=== PATIENT | female | born 2000 | race Caucasian/White ===

== ENCOUNTER 2018-06-20 06:15 | Emergency (ER) | payer SELFPAY ==
[2018-06-20 06:49] LABS: BILIRUBIN,URINE NEGATIVE (NEGATIVE); GLUCOSE, URINE (UA) NEGATIVE (NEGATIVE); KETONES,URINE (UA) NEGATIVE (NEGATIVE); LEUKOCYTE ESTERASE, URINE NEGATIVE (NEGATIVE); NITRITE,URINE POSITIVE (NEGATIVE); OCCULT BLOOD,URINE LARGE (NEGATIVE); PH,URINE 5.5 PH (5.0-7.5); PROTEIN,URINE NEGATIVE (NEGATIVE); UROBILINOGEN,URINE 0.2 (NORMAL) E.U./dL (NORMAL)
[2018-06-20 06:50] LABS: CLARITY,URINE HAZY (CLEAR)
[2018-06-20 06:51] LABS: HCG UR QUAL NEGATIVE
[2018-06-20 06:59] LABS: BACTERIA,URINE Many /HPF (None Seen); SQUAMOUS EPITHELIAL CELL,UR MOD Squamous (<= Few)
[2018-06-20 07:16] LABS: BASOPHILS % (AUTO) 0.3 %; EOSINOPHILS # (AUTO) 0.1 10^3/uL (0.0-0.7); EOSINOPHILS % (AUTO) 1.5 %; HGB - HEMOGLOBIN 12.6 g/dL (12.0-16.0); LYMPHOCYTES # (AUTO) 1.5 10^3/uL (1.5-3.5); MEAN CORPUSCULAR HEMOGLOBIN 29.5 pg (27.0-31.0); MEAN CORPUSCULAR HGB CONC 33.7 g/dL (32.0-36.0); MEAN CORPUSCULAR VOLUME 87.6 fL (81.0-99.0); MEAN PLATELET VOLUME 8.5 fL (7.9-10.8); MONOCYTES # (AUTO) 0.5 10^3/uL (0.0-1.0); MONOCYTES % (AUTO) 6.8 %; NEUTROPHILS # (AUTO) 4.6 10^3/uL (1.5-6.6); NEUTROPHILS % (AUTO) 69.4 %; PLT - PLATELET COUNT 186 10^3/uL (130-450); RED BLOOD COUNT 4.25 10^6/uL (4.20-5.40); RED CELL DISTRIBUTION WIDTH 13.4 % (12.0-15.0); WHITE BLOOD COUNT 6.7 x10^3/uL (4.8-10.8)
[2018-06-20 07:29] LABS: ALBUMIN/GLOBULIN RATIO 1.3 (1.0-2.2); BILIRUBIN,TOTAL 0.4 mg/dL (0.2-1.0); CALCIUM 8.9 mg/dL (8.5-10.3); CREATININE 0.6 mg/dL (0.4-1.0)
[2018-06-20] MEDS ORDERED: IBUPROFEN 600 MG TABLET PO STA (08:16)
[2018-06-20] MEDS ORDERED: SULFAMETH/TRIMETH DS 800/160 MG TABLET PO STA (08:16)
--- NOTE | 2018-06-20 08:19 | ED Physician Documentation ---
PD HPI FEMALE - Stated complaint Stated Complaint: FEMALE - Chief complaint Chief Complaint: Abd Pain - History obtained from History obtained from: Patient - History of Present Illness Timing - onset: Last night (had lower abd/pelvic cramps last night and then this morning had onset of vaginal bleeding with some clots passed about 2-3 cm size. Bleeding has tapered off coming to the ER.) Timing - duration: Hours Timing - details: Abrupt onset, Still present (lessening) Associated symptoms: Pelvic pain, Vaginal bleeding. No: Fever, Vaginal discharge, Genital sore/lesion, Dysuria Contributing factors: (LMP early May, and had home test positive (4 of them) - done 5 and 3 days ago.). No: control, Exposed to STD OB-BIOLOGICAL SCIENCE TECHNICIAN History: G (1), P (0) Similar symptoms before: Has not had sx before Recently seen: Not recently seen Review of Systems Constitutional: denies: Fever, Chills Nose: denies: Rhinorrhea / runny nose, Congestion Throat: denies: Sore throat Cardiac: denies: Chest pain / pressure Respiratory: denies: Cough GI: denies: Nausea, Vomiting, Diarrhea : reports: Vaginal bleeding, Now EGA (5). denies: Dysuria, Frequency, Discharge Neurologic: denies: Generalized weakness, Near syncope PD PAST MEDICAL HISTORY - Past Medical History Past Medical History: No Cardiovascular: None Respiratory: None BIOLOGICAL SCIENCE TECHNICIAN: None - Past Surgical History Past Surgical History: No - Present Medications Home Medications: Ambulatory Orders Medication Instructions Recorded Confirmed Ibuprofen [Motrin] 600 mg PO TID #20 tab 06/20/18 Sulfamethox/Trimeth 800/160 1 each PO BID #10 tablet 06/20/18 [Bactrim Ds 800/160] - Allergies Allergies/Adverse Reactions: Allergies Allergy/AdvReac Type Severity Reaction Status Date / Time morphine Allergy Hives Verified 06/20/18 06:32 - Social History Does the pt smoke?: No Smoking Status: Never smoker Does the pt drink ETOH?: Yes Does the pt have substance abuse?: No - Immunizations Immunizations are current?: Yes - POLST Patient has POLST: No PD ED PE NORMAL - Vitals Vital signs reviewed: Yes - General General: Alert and oriented X 3, No acute distress, Well developed/nourished - Neck Neck: Supple, no meningeal sign, No adenopathy - Cardiac Cardiac: RRR, No murmur - Respiratory Respiratory: Clear bilaterally - Abdomen Abdomen: Normal bowel sounds, Soft, Non distended, No organomegaly, Other (mild suprapubic to LLQ area without guardin nor percussion tender.) - Female Female : Deferred - Rectal Rectal: Deferred - Back Back: No CVA TTP Results - Vitals Vitals: Vital Signs - 24 hr 06/20/18 06/20/18 06:20 08:29 Temperature 36.4 C L 36.6 C Heart Rate 78 74 Respiratory 18 18 Rate Blood Pressure 120/73 118/70 O2 Saturation 98 98 Oxygen O2 Source Room air - Labs Labs: Laboratory Tests 06/20/18 06/20/18 06/20/18 06:35 07:05 07:05 WBC 6.7 RBC 4.25 Hgb 12.6 Hct 37.3 MCV 87.6 MCH 29.5 MCHC 33.7 RDW 13.4 Plt Count 186 MPV 8.5 Neut # (Auto) 4.6 Lymph # (Auto) 1.5 Adams # (Auto) 0.5 Eos # (Auto) 0.1 Baso # (Auto) 0.0 Absolute Nucleated RBC 0.00 Nucleated RBC % 0.0 Sodium 138 Potassium 4.0 Chloride 103 Carbon Dioxide 24 Anion Gap 11.0 BUN 12 Creatinine 0.6 Estimated GFR (MDRD) 127 Glucose 94 Calcium 8.9 Total Bilirubin 0.4 AST 27 ALT 29 Alkaline Phosphatase 60 Total Protein 7.0 Albumin 4.0 Globulin 3.0 Albumin/Globulin Ratio 1.3 Lipase 26 HCG, Quant Urine Color YELLOW Urine Clarity HAZY Urine pH 5.5 Ur Specific [place] 1.025 Urine Protein NEGATIVE Urine Glucose (UA) NEGATIVE Urine Ketones NEGATIVE Urine Occult Blood LARGE H Urine Nitrite POSITIVE H Urine Bilirubin NEGATIVE Urine Urobilinogen 0.2 (NORMAL) Ur Leukocyte Esterase NEGATIVE Urine RBC 6-10 H Urine WBC 0-3 Ur Squamous Epith Cells MOD Squamous H Urine Bacteria Many H Ur Microscopic Review INDICATED Urine Culture Comments NOT INDICATED Urine HCG, Qual NEGATIVE Blood Type 06/20/18 06/20/18 07:05 07:05 WBC RBC Hgb Hct MCV MCH MCHC RDW Plt Count MPV Neut # (Auto) Lymph # (Auto) Adams # (Auto) Eos # (Auto) Baso # (Auto) Absolute Nucleated RBC Nucleated RBC % Sodium Potassium Chloride Carbon Dioxide Anion Gap BUN Creatinine Estimated GFR (MDRD) Glucose Calcium Total Bilirubin AST ALT Alkaline Phosphatase Total Protein Albumin Globulin Albumin/Globulin Ratio Lipase HCG, Quant 9.39 Urine Color Urine Clarity Urine pH Ur Specific [place]way Urine Protein Urine Glucose (UA) Urine Ketones Urine Occult Blood Urine Nitrite Urine Bilirubin Urine Urobilinogen Ur Leukocyte Esterase Urine RBC Urine WBC Ur Squamous Epith Cells Urine Bacteria Ur Microscopic Review Urine Culture Comments Urine HCG, Qual Blood Type A POSITIVE - Rads (name of study) pelvic U/S Radiology: Prelim report reviewed (normal U/S, no IUP, normal adnexa.) PD MEDICAL DECISION MAKING - ED course Complexity details: considered differential (had home preg test positive x 4, so presume is true. Had negative quant here with vag bleeding and normal U/S. So apparent IUFD with now miscarriage. ) - Sepsis Event Vital Signs: Vital Signs - 24 hr 06/20/18 06/20/18 06:20 08:29 Temperature 36.4 C L 36.6 C Heart Rate 78 74 Respiratory 18 18 Rate Blood Pressure 120/73 118/70 O2 Saturation 98 98 Oxygen O2 Source Room air Departure - Departure Disposition: 01 Home, Self Care Clinical Impression: Complete miscarriage, Vaginal bleeding UTI (urinary tract infection) Qualifiers: Urinary tract infection type: acute cystitis Hematuria presence: without hematuria Qualified Code(s): N30.00 - Acute cystitis without hematuria Condition: Stable Record reviewed to determine appropriate education?: Yes Instructions: ED Miscarriage Completed, ED UTI Cystitis Female Prescriptions: Ibuprofen [Motrin] 600 mg PO TID #20 tab Sulfamethox/Trimeth 800/160 [Bactrim Ds 800/160] 1 each PO BID #10 tablet Comments: Your ultrasound shows an empty uterus. Your HCG blood test here today is very low and would be consistent with not being . Given your positive home tests, I am sorry to say that this would suggest that you had a very early that had miscarried and is now passing out. I would anticipate a little bit of bleeding and clotting through the day today and possibly tomorrow and tapering off. Drink lots of fluids. Tylenol or ibuprofen if needed for pains and cramps. You also do have a bladder infection and use Bactrim twice daily for 5 days for that. Return if significant pains cramps or bleeding. Discharge Date/Time: 06/20/18 08:29
[2018-06-20 08:34] VITALS: BP 118/70
--- NOTE | 2018-06-20 08:52 | Ultrasound Report ---
Reason: pos home preg test; neg here. had vag bleeding tod Procedure Date: 06/20/2018 Accession Number: [id number] / [id number] Procedure: US - Pelvic w/Transvaginal CPT Code: FULL RESULT: EXAM: PELVIC ULTRASOUND EXAM DATE: 06/20/2018 08:16 AM. CLINICAL HISTORY: Pos home preg test; neg here. had vag bleeding tod. COMPARISON: None. TECHNIQUE: Realtime transabdominal pelvic scan performed to identify the uterus and adnexa and as an overview of other pelvic structures, followed by transvaginal scan to provide greater detail of the uterus and adnexa, with static image documentation. FINDINGS: Uterus: 8 x 3.4 x 4.3 cm, volume 61 cc. Anteverted position. Normal overall size and echotexture. Masses: None. Endometrium: 4 mm. Normal. Cervix: Unremarkable. Right Ovary: 4.4 x 2 x 2.3 cm, volume 10.5 cc. Normal echotexture and blood flow. An anechoic cyst measures 2 x 1.8 x 2 cm. Left Ovary: 3 x 1.6 x 1.7 cm, volume 4.2 cc. Normal echotexture and blood flow. Free Fluid: None. Other: None. IMPRESSION: Negative pelvic ultrasound exam. Specifically, negative for an IUP. RADIA
== END 2018-06-20 08:29 | disposition home or self-care (01) ==
LOC: ED 06:15
DX: O03.9 Complete or unspecified spontaneous abortion without complication (principal); N93.9 Abnormal uterine and vaginal bleeding, unspecified
CPT/HCPCS: 36415; 76830; 76856; 80053; 81001; 81025; 83690; 84702; 85025; 86900; 86901; 99283; A9270; 81003; 87086

== ENCOUNTER 2018-10-24 16:06 | Outpatient (CLI) | payer BC ==
--- NOTE | 2018-10-24 18:21 | Ultrasound Report ---
Reason: EXAMINATION OR TEST,POSITIVE RESULT Procedure Date: 10/24/2018 Accession Number: [id number] / [id number] Procedure: US - OB First Trimester CPT Code: FULL RESULT: EXAM: FIRST TRIMESTER OBSTETRIC ULTRASOUND (Less than 11 weeks) EXAM DATE: 10/24/2018 04:48 PM. CLINICAL HISTORY: EXAMINATION OR Test, positive RESULT. LMP: 08/25/2018. COMPARISONS: None. TECHNIQUE: Transabdominal and transvaginal ultrasound examination with static image documentation. CLINICAL DATES: EGA 8 weeks 4 days with MICHAEL 06/01/2019 based on LMP. ASSESSMENT: Gestational Sac: Single intrauterine. Mean gestational sac diameter: 15.2 mm = 5 weeks 5 days. Embryo: CRL (crown-rump length) 10.6 mm = 7 weeks 1 day. Cardiac activity: 168 beats per minute. Yolk sac: 2.9 mm. Amniotic fluid: Not accurately assessed at this gestational age. Early placenta: Not visible at this gestational age. Other: No perigestational fluid collection demonstrated. MATERNAL STRUCTURES: Uterus: Anteverted. Unremarkable. Cervix: Closed. Right Ovary/Adnexa: The ovary measures 3.3 x 1.6 x 2 cm, volume 5.5 cc. Unremarkable. 1.8 cm in diameter cyst. Left Ovary/Adnexa: The ovary measures 3.9 x 1.9 x 1.6 cm, volume 6.2 cc. Unremarkable. Free Fluid: None. Other: None. IMPRESSION: 1. Single viable intrauterine at EGA 7 weeks 1 day with MICHAEL 06/11/2019 based on crown-rump length, which is discordant with clinical dates. 2. Assigned dating is MICHAEL 06/11/2019 based on current ultrasound.. RADIA
== END 2018-10-24 16:07 | disposition home or self-care (01) ==
LOC: DI 16:06
PROVIDERS: ATTEND Nurse Practitioner Obstetrics & Gynecology
DX: Z32.01 Encounter for pregnancy test, result positive (principal)
CPT/HCPCS: 76801; 76817

== ENCOUNTER 2018-11-05 14:15 | Outpatient (CLI) | payer BC ==
[2018-11-05 18:42] LABS: MUDS CUTOFF CONCENTRATIONS CUTOFF CONC BELOW:
[2018-11-05 19:40] LABS: AMPHETAMINE SCREEN,URINE NEGATIVE (NEGATIVE); BENZODIAZEPINES SCREEN, URINE NEGATIVE (NEGATIVE); COCAINE SCREEN URINE NEGATIVE (NEGATIVE); METHADONE SCREEN, URINE NEGATIVE (NEGATIVE); METHAMPHETAMINES SCREEN, URINE NEGATIVE (NEGATIVE); OPIATE SCREEN, URINE NEGATIVE (NEGATIVE); OXYCODONE SCREEN, URINE NEGATIVE (NEGATIVE); PROPOXYPHENE SCREEN, URINE NEGATIVE (NEGATIVE); TRICYCLIC ANTIDEPRESSANT,URINE NEGATIVE (NEGATIVE)
== END 2018-11-05 23:59 | disposition home or self-care (01) ==
LOC: LAB.R 14:15
PROVIDERS: ATTEND Nurse Practitioner Obstetrics & Gynecology
DX: Z34.90 Encounter for supervision of normal pregnancy, unspecified, unspecified trimester (principal)
CPT/HCPCS: 80306

== ENCOUNTER 2019-02-17 13:12 | Outpatient (CLI) | payer BC ==
--- NOTE | 2019-02-17 15:39 | Ultrasound Report ---
Reason: SUPERVISION OF Procedure Date: 02/17/2019 Accession Number: [id number] / [id number] Procedure: US - OB Detailed Eval CPT Code: FULL RESULT: EXAM: COMPLETE OBSTETRICAL ULTRASOUND EXAM DATE: 02/17/2019 01:48 PM. CLINICAL HISTORY: anatomic survey. COMPARISON: 02/17/2019 3:01 PM. TECHNIQUE: Real-time sonographic evaluation of the fetus performed by the chief of police. Multiple metals sales representative static images were saved for review. DATING: Established EGA 22 weeks 5 days with MICHAEL 06/11/2019 based on physician stated/first ultrasound. EGA 25 weeks 1 day with MICHAEL 06/01/2019 based on LMP. EGA 25 weeks 0 days with MICHAEL 06/02/2019 based on the current ultrasound. GENERAL EVALUATION Hodges . Cardiac activity: 150 bpm. movement: Visualized. Presentation: Breech. Placenta: Anterior right position. No evidence for previa. Umbilical cord: 3 vessel cord. Central placental cord origin. Amniotic fluid: Subjectively normal. MVP 5.5 cm. BIOMETRY Bi-Parietal Diameter (BPD): 6.3 cm, 25 weeks 2 days. Head Circumference (HC): 23.2 cm, 25 weeks 1 day. Abdominal Circumference (AC): 20.4 cm, 25 weeks 0 days. Femur Length (FL): 4.4 cm, 24 weeks 3 days. Estimated Weight: 741 g, 88th percentile for 23 weeks 5 days. ANATOMY The intracranial structures, profile, face/nose/lips, spine, 4 chamber heart and outflow tracts, stomach, abdominal wall and cord insertion, diaphragm, kidneys, bladder, and extremities were visualized and demonstrate no abnormality. MATERNAL STRUCTURES Uterus: Unremarkable. Cervix: Long and closed. Transabdominal length 4.4 cm. Right ovary/adnexa: Unremarkable. Left ovary/adnexa: Unremarkable. Free fluid: None. IMPRESSION: 1. Hodges live intrauterine with gestational age 23 weeks 5 days based on physician stated/first ultrasound. 2. Estimated weight is within expected limits for assigned dating. 3. Normal anatomic survey. No anatomic abnormalities are detected at this time. RADIA
== END 2019-02-17 13:13 | disposition home or self-care (01) ==
LOC: DI 13:12
PROVIDERS: ATTEND Obstetrics & Gynecology
DX: Z34.90 Encounter for supervision of normal pregnancy, unspecified, unspecified trimester (principal)
CPT/HCPCS: 76811

== ENCOUNTER 2019-03-06 15:30 | Outpatient (CLI) | payer BC ==
[2019-03-06 16:08] LABS: BASOPHILS # (AUTO) 0.1 10^3/uL (0.0-0.1); BASOPHILS % (AUTO) 0.5 %; EOSINOPHILS # (AUTO) 0.1 10^3/uL (0.0-0.7); HGB - HEMOGLOBIN 11.5 g/dL (12.0-16.0); LYMPHOCYTES # (AUTO) 1.8 10^3/uL (1.5-3.5); LYMPHOCYTES % (AUTO) 14.9 %; MEAN CORPUSCULAR HEMOGLOBIN 29.6 pg (27.0-31.0); MEAN CORPUSCULAR HGB CONC 33.3 g/dL (32.0-36.0); MEAN CORPUSCULAR VOLUME 88.9 fL (81.0-99.0); MEAN PLATELET VOLUME 8.5 fL (7.9-10.8); MONOCYTES # (AUTO) 0.7 10^3/uL (0.0-1.0); NEUTROPHILS # (AUTO) 9.6 10^3/uL (1.5-6.6); NEUTROPHILS % (AUTO) 77.6 %; PLT - PLATELET COUNT 214 10^3/uL (130-450); RED CELL DISTRIBUTION WIDTH 13.8 % (12.0-15.0); WHITE BLOOD COUNT 12.3 x10^3/uL (4.8-10.8)
[2019-03-06 16:12] LABS: BILIRUBIN,URINE NEGATIVE (NEGATIVE); GLUCOSE, URINE (UA) NEGATIVE (NEGATIVE); KETONES,URINE (UA) TRACE mg/dL (NEGATIVE); LEUKOCYTE ESTERASE, URINE SMALL (NEGATIVE); NITRITE,URINE NEGATIVE (NEGATIVE); OCCULT BLOOD,URINE NEGATIVE (NEGATIVE); PROTEIN,URINE NEGATIVE (NEGATIVE); UROBILINOGEN,URINE 2 E.U./dL (NORMAL)
[2019-03-06 16:16] LABS: CLARITY,URINE CLEAR (CLEAR)
[2019-03-06 16:21] LABS: BACTERIA,URINE Many /HPF (None Seen); RBC,URINE 0-5 /HPF (0-5); SQUAMOUS EPITHELIAL CELL,UR MANY Squamous (<= Few)
[2019-03-07 14:08] LABS: HEPATITIS B SURFACE ANTIGEN NON-REACTIVE (NON-REACTIVE)
[2019-03-07 14:09] LABS: HEPATITIS C ANTIBODY NON-REACTIVE (NON-REACTIVE)
[2019-03-07 14:45] LABS: HIV AG/AB 4TH GEN NON-REACTIVE (NON-REACTIVE)
== END 2019-03-06 15:31 | disposition home or self-care (01) ==
LOC: LAB 15:30
PROVIDERS: ATTEND Registered Nurse
DX: Z34.90 Encounter for supervision of normal pregnancy, unspecified, unspecified trimester (principal)
CPT/HCPCS: 36415; 81001; 81599; 85025; 86592; 86762; 86803; 86850; 86900; 86901; 87086; 87340; 87389

== ENCOUNTER 2019-03-07 08:00 | Outpatient (CLI) | payer BC ==
[2019-03-07 22:54] LABS: TRICHOMONAS VAGINALIS DNA NEGATIVE (NEGATIVE)
== END 2019-03-07 23:59 | disposition home or self-care (01) ==
LOC: LAB.R 08:00
PROVIDERS: ATTEND Registered Nurse
DX: Z34.90 Encounter for supervision of normal pregnancy, unspecified, unspecified trimester (principal)
CPT/HCPCS: 87491; 87591; 87661

== ENCOUNTER 2019-03-13 08:00 | Outpatient (CLI) | payer BC | END 2019-03-13 23:59 | disposition home or self-care (01) | LOC: LAB 08:00 | PROVIDERS: ATTEND Nurse Practitioner Obstetrics & Gynecology | DX: L98.9 Disorder of the skin and subcutaneous tissue, unspecified (principal) | CPT/HCPCS: 36415; 81599; 86780 ==